=== PATIENT | male | born 1950 | race Caucasian/White ===

== ENCOUNTER 2020-04-18 15:53 | Inpatient (IN) ==
[2020-04-18 16:39] LABS: Basophils % 0.6 %; Eosinophils # 0.1 K/mcL (0.0-0.6); Eosinophils % 0.9 %; Hematocrit 41.9 % (37.5-50.1); Immature Granulocytes % 0.5 % (0-4); Lymphocytes # 1.2 K/mcL (0.6-4.6); Mean Corpuscular Hemoglobin 26.5 pg (28.0-33.3); Mean Corpuscular Volume 85.3 fL (83.0-100.0); Mean Platelet Volume 11.8 fL (9.4-12.4); Monocytes # 0.6 K/mcL (0.0-1.3); Platelet Count 198 K/mcL (140-400); Red Blood Count 4.91 M/mcL (4.19-5.50); Red Cell Distribution Width 23.3 % (11.5-14.5); White Blood Count 6.7 K/mcL (4.3-11.1)
[2020-04-18 16:40] LABS: VBG HCO3 23 mEq/L (21-27); VBG PCO2 36 mmHg (41-51); VBG PH 7.42 pH Units (7.32-7.42); VBG PO2 62 mmHg (25-50)
[2020-04-18 16:45] LABS: Neutrophils # 4.8 K/mcL (1.6-8.9)
[2020-04-18 16:50] LABS: Bacteria,Urine Few per hpf (None-Few); Bilirubin,Urine Small (Negative); Blood,Urine Negative (Negative); Clarity,Urine Clear (Clear); Color,Urine Yellow (Yellow); Glucose,Urine (UA) Normal (Normal); Hyaline Casts,Urine Moderate per lpf (None Seen); Ketones,Urine Negative (Negative); Leukocyte Esterase,Urine Small (Negative); Mucus,Urine Few per lpf (None-Few); Nitrite,Urine Negative (Negative); Protein,Urine 70 mg/dL (Neg-Trace); Specific Gravity,Urine > 1.030 (1.010-1.025); Squamous Epithelial Cell,Urine Few per hpf (None-Few); Urobilinogen,Urine >=8.0 mg/dL (Normal)
[2020-04-18 16:56] LABS: Amphetamine Screen,Urine Negative ng/mL (Cutoff=1000); Barbiturate Screen,Urine Negative ng/mL (Cutoff=200); Benzodiazepines Screen,Urine Negative ng/mL (Cutoff=200); Cannabinoid Screen,Urine Positive ng/mL (Cutoff = 50); Cocaine Screen,Urine Negative ng/mL (Cutoff= 300); Opiate Screen,Urine Negative ng/mL (Cutoff=300); Phencyclidine Screen,Urine Negative ng/mL (Cutoff=25)
[2020-04-18 16:56] LABS: Acetaminophen < 10 mcg/mL (10-20); BUN/Creatinine Ratio 20 (6-26); Blood Urea Nitrogen 27 mg/dL (8-23); Calcium 9.4 mg/dL (8.6-10.3); Carbon Dioxide 25 mEq/L (23-29); Chloride 103 mEq/L (98-107); Chol/HDL Ratio 4.8 (0-4.9); Cholesterol 101 mg/dL (< 200); Ethanol < 10 mg/dL (Less than 10); Glucose 221 mg/dL (70-105); HDL Cholesterol 21 mg/dL (40-59); LDL Cholesterol,Calculated 64 mg/dL (< 100); Osmolality,Calculated 296 (280-300); Potassium 3.8 mEq/L (3.5-5.1); Salicylate < 2.5 mg/dL (15.0-30.0); Sodium 137 mEq/L (136-145); Triglycerides 82 mg/dL (< 150); eGFR For African Americans > 60 (> 60); eGFR For Non-African Americans 54 (> 60)
[2020-04-18 17:13] LABS: Basophilic Stippling 1+ (Not Present); Macrocytosis Present (Not Present); Microcytosis Present (Not Present); Ovalocytes 1+ (Not Present); Platelet Estimate Slight Decrease (Normal); Poikilocytosis 1+ (Not Present)
[2020-04-18 17:23] LABS: Estimated Average Glucose 154 mg/dl
[2020-04-18] MEDS ORDERED: DilTIAZem 50 MG/50 ML IV.SOLN IVC SCH (17:45)
[2020-04-18] MEDS ORDERED: MOM Conc 10 ML UD.LIQ PO PRN (17:58)
[2020-04-18] MEDS ORDERED: Acetaminophen 325 MG TABLET PO PRN (17:58)
[2020-04-18] MEDS ORDERED: Mag Hydrox/Al Hydrox/Simeth 30 ML UDC PO PRN (17:58)
[2020-04-18] MEDS ORDERED: *HR* Promethazine 25 MG/ML VIAL IVP PRN (17:58)
[2020-04-18] MEDS ORDERED: Naloxone 0.4 MG/ML INJ IVP PRN (17:58)
[2020-04-18] MEDS ORDERED: Dextrose Gel 15 GM/37.5 ML TUBE PO PRN ×2 (18:00)
[2020-04-18] MEDS ORDERED: D5% in Water 1,000 ML IVC PRN (18:00)
[2020-04-18] MEDS ORDERED: *HR* Dextrose 50 % in Water (Vial) 50 ML VIAL IVP PRN (18:00)
[2020-04-18] MEDS ORDERED: Perflutren Lipid Microsphere 1.3 ML in 0.9 % Sodium Chloride 8.7 ML IVP PRN (18:22)
[2020-04-18 20:28] LABS: Adenovirus Not Detected (Not Detect); Bordetella Pertussis Not Detected (Not Detect); Chlamydophila pneumoniae Not Detected (Not Detect); Coronavirus 229E Not Detected (Not Detect); Coronavirus HKU1 Not Detected (Not Detect); Coronavirus NL63 Not Detected (Not Detect); Coronavirus OC43 Not Detected (Not Detect); Human Metapneumovirus Not Detected (Not Detect); Human Rhinovirus/Enterovirus Not Detected (Not Detect); Influenza A Subtype 2009 H1 Not Detected (Not Detect); Influenza B Not Detected (Not Detect); Mycoplasma pneumoniae Not Detected (Not Detect); Parainfluenza Virus 1 Not Detected (Not Detect); Parainfluenza Virus 2 Not Detected (Not Detect); Parainfluenza Virus 3 Not Detected (Not Detect); Parainfluenza Virus 4 Not Detected (Not Detect); Respiratory Syncytial Virus Not Detected (Not Detect); SARS-CoV-2 Not Detected (Not Detect)
[2020-04-18] MEDS: cefTRIAXone 1,000 MG in Water for inj. (sterile) 10 ML IVP SCH (22:28)
[2020-04-18] MEDS: Azithromycin 500 MG in 0.9 % Sodium Chloride 250 ML IVPB SCH (22:28)
[2020-04-18] MEDS: Furosemide 20 MG/2 ML VIAL IVP SCH (22:29)
[2020-04-18] MEDS: Insulin LISPRO 300 UNITS/3 ML VIAL SQ SCH (22:42)
[2020-04-19] MEDS ORDERED: *HR* LORazepam 0.5 MG TABLET PO ONE (00:38)
[2020-04-19 02:31] LABS: Basophils % 0.8 %; Hematocrit 44.7 % (37.5-50.1); Monocytes % 8.2 %
[2020-04-19 02:33] LABS: Basophils # 0.1 K/mcL (0.0-0.2); Eosinophils # 0.2 K/mcL (0.0-0.6); Hemoglobin 13.5 g/dL (12.9-16.9); Immature Granulocytes % 0.5 % (0-4); Immature Platelets 8.3 % (1.1-6.1); Lymphocytes # 1.2 K/mcL (0.6-4.6); Lymphocytes % 15.2 %; Mean Corpuscular HGB Conc 30.2 g/dL (31.6-35.5); Mean Corpuscular Hemoglobin 26.4 pg (28.0-33.3); Mean Corpuscular Volume 87.5 fL (83.0-100.0); Mean Platelet Volume 12.2 fL (9.4-12.4); Monocytes # 0.7 K/mcL (0.0-1.3); Neutrophils # 5.8 K/mcL (1.6-8.9); Platelet Count 178 K/mcL (140-400); Red Blood Count 5.11 M/mcL (4.19-5.50); Red Cell Distribution Width 23.4 % (11.5-14.5); Segmented Neutrophils % 73.3 %; White Blood Count 7.9 K/mcL (4.3-11.1)
[2020-04-19 02:50] LABS: Calcium 8.7 mg/dL (8.6-10.3); Magnesium 2.2 mg/dL (1.6-2.6); Phosphorous 4.1 mg/dL (2.7-4.5); Potassium 3.9 mEq/L (3.5-5.1)
[2020-04-19 03:05] LABS: Thyroid Stimulating Hormone 12.742 mcIU/mL (0.340-5.600)
[2020-04-19 03:18] LABS: Poikilocytosis 1+ (Not Present)
[2020-04-19 03:19] LABS: Anisocytosis 1+ (Not Present); Ovalocytes 1+ (Not Present)
[2020-04-19 03:20] LABS: Platelet Estimate Normal (Normal)
[2020-04-19] MEDS ORDERED: *HR* Heparin 5,000 UNIT/ML VIAL SQ SCH (06:00)
[2020-04-19] MEDS: Insulin LISPRO 300 UNITS/3 ML VIAL SQ SCH ×4 (07:21→20:45)
[2020-04-19] MEDS: Furosemide 20 MG/2 ML VIAL IVP SCH ×2 (08:11→16:49)
[2020-04-19] MEDS: Pregabalin 75 MG CAPSULE PO SCH ×2 (09:41→20:43)
[2020-04-19] MEDS ORDERED: *HR* LORazepam 1 MG TABLET PO ONE (11:14)
[2020-04-19] MEDS ORDERED: *HR* Heparin 5,000 UNIT/ML VIAL IVP ONE (11:45)
[2020-04-19] MEDS ORDERED: *HR* Heparin 5,000 UNIT/ML VIAL IVP PRN (11:45)
[2020-04-19 12:39] LABS: Hematocrit 45.3 % (37.5-50.1); Hemoglobin 13.9 g/dL (12.9-16.9); Mean Corpuscular HGB Conc 30.7 g/dL (31.6-35.5); Mean Corpuscular Hemoglobin 26.5 pg (28.0-33.3); Mean Corpuscular Volume 86.3 fL (83.0-100.0); Mean Platelet Volume 11.7 fL (9.4-12.4); Platelet Count 198 K/mcL (140-400); Red Blood Count 5.25 M/mcL (4.19-5.50); Red Cell Distribution Width 23.6 % (11.5-14.5); White Blood Count 7.6 K/mcL (4.3-11.1)
[2020-04-19 12:42] LABS: Heparin anti-factor XA UFH < 0.04 IU/mL (0.30-0.70); Prothrombin Time 23.2 Seconds (9.4-12.1)
[2020-04-19] MEDS: Heparin 25,000UNIT/250ML 1/2NS 25,000 UNIT/250 ML IV.SOLN IVC SCH (13:02)
[2020-04-19] MEDS: cefTRIAXone 1,000 MG in Water for inj. (sterile) 10 ML IVP SCH (20:41)
[2020-04-19] MEDS: diazePAM 2 MG TABLET PO SCH (20:43)
[2020-04-19] MEDS: Ondansetron 4 MG/2 ML VIAL IVP PRN (20:43)
[2020-04-19] MEDS: traZODone 50 MG TABLET PO SCH (20:43)
[2020-04-19] MEDS: Azithromycin 500 MG in 0.9 % Sodium Chloride 250 ML IVPB SCH (20:56)
[2020-04-19] MEDS ORDERED: PREGABALIN 225 MG PO SCH (21:00)
[2020-04-20 02:13] LABS: Basophils # 0.1 K/mcL (0.0-0.2); Basophils % 0.9 %; Eosinophils # 0.2 K/mcL (0.0-0.6); Eosinophils % 3.9 %; Hemoglobin 11.2 g/dL (12.9-16.9); Immature Granulocytes % 0.6 % (0-4); Lymphocytes # 1.5 K/mcL (0.6-4.6); Lymphocytes % 27.5 %; Mean Corpuscular HGB Conc 31.1 g/dL (31.6-35.5); Mean Corpuscular Hemoglobin 26.6 pg (28.0-33.3); Mean Corpuscular Volume 85.5 fL (83.0-100.0); Mean Platelet Volume 11.2 fL (9.4-12.4); Monocytes # 0.5 K/mcL (0.0-1.3); Neutrophils # 3.2 K/mcL (1.6-8.9); Platelet Count 157 K/mcL (140-400); Red Blood Count 4.21 M/mcL (4.19-5.50); Red Cell Distribution Width 22.6 % (11.5-14.5); Segmented Neutrophils % 58.1 %; White Blood Count 5.4 K/mcL (4.3-11.1)
[2020-04-20 02:34] LABS: BUN/Creatinine Ratio 27 (6-26); Blood Urea Nitrogen 35 mg/dL (8-23); Calcium 8.1 mg/dL (8.6-10.3); Carbon Dioxide 23 mEq/L (23-29); Chloride 106 mEq/L (98-107); Glucose 123 mg/dL (70-105); Osmolality,Calculated 295 (280-300); Phosphorous 4.1 mg/dL (2.7-4.5); Potassium 3.1 mEq/L (3.5-5.1); Sodium 138 mEq/L (136-145); eGFR For African Americans > 60 (> 60); eGFR For Non-African Americans 54 (> 60)
[2020-04-20] MEDS: Insulin LISPRO 300 UNITS/3 ML VIAL SQ SCH ×4 (08:36→21:14)
[2020-04-20] MEDS: Pregabalin 75 MG CAPSULE PO SCH ×2 (09:27→21:16)
[2020-04-20] MEDS: lisinopriL 10 MG TABLET PO SCH (09:27)
[2020-04-20] MEDS: diazePAM 2 MG TABLET PO SCH ×2 (09:27→21:15)
[2020-04-20] MEDS: Furosemide 20 MG/2 ML VIAL IVP SCH ×2 (09:28→16:19)
[2020-04-20] MEDS: Heparin 25,000UNIT/250ML 1/2NS 25,000 UNIT/250 ML IV.SOLN IVC SCH (09:55)
[2020-04-20 10:07] LABS: Hematocrit 42.6 % (37.5-50.1)
[2020-04-20 10:09] LABS: Hemoglobin 13.2 g/dL (12.9-16.9)
[2020-04-20 10:10] LABS: INR 1.9; Prothrombin Time 21.8 Seconds (9.4-12.1)
[2020-04-20 10:12] LABS: Activated Partial Thrombo Time 81.2 Seconds (26.0-36.0)
[2020-04-20 10:50] LABS: Folate 13.3 ng/mL (3.0-16.0)
[2020-04-20 12:46] LABS: Bilirubin,Total 1.9 mg/dL (0.3-1.0)
[2020-04-20] MEDS ORDERED: Warfarin perPT PO SCH (18:00)
[2020-04-20] MEDS ORDERED: *HR* Warfarin 1 MG TABLET PO ONE (18:00)
[2020-04-20] MEDS: Metoprolol XL (24 HR) Succ 25 MG TAB.ER.24H PO SCH (21:05)
[2020-04-20] MEDS: traZODone 50 MG TABLET PO SCH (21:16)
[2020-04-21] MEDS: Furosemide 20 MG TABLET PO SCH ×2 (06:24→17:17)
[2020-04-21] MEDS: Insulin LISPRO 300 UNITS/3 ML VIAL SQ SCH ×4 (08:28→20:59)
[2020-04-21] MEDS: diazePAM 2 MG TABLET PO SCH ×2 (08:48→21:00)
[2020-04-21] MEDS: Pregabalin 75 MG CAPSULE PO SCH ×2 (08:48→21:04)
[2020-04-21] MEDS: Metoprolol XL (24 HR) Succ 25 MG TAB.ER.24H PO SCH (08:48)
[2020-04-21] MEDS: Heparin 25,000UNIT/250ML 1/2NS 25,000 UNIT/250 ML IV.SOLN IVC SCH (08:49)
[2020-04-21] MEDS: lisinopriL 10 MG TABLET PO SCH (08:49)
[2020-04-21] MEDS: levoFLOXacin 750 MG TABLET PO SCH (08:49)
[2020-04-21 09:29] LABS: Basophils % 0.6 %; Eosinophils # 0.1 K/mcL (0.0-0.6); Eosinophils % 1.6 %; Hematocrit 41.3 % (37.5-50.1); Hemoglobin 12.4 g/dL (12.9-16.9); Heparin anti-factor XA UFH 0.52 IU/mL (0.30-0.70); INR 1.7; Immature Granulocytes % 0.8 % (0-4); Lymphocytes # 1.2 K/mcL (0.6-4.6); Mean Corpuscular Hemoglobin 26.4 pg (28.0-33.3); Mean Corpuscular Volume 88.1 fL (83.0-100.0); Monocytes # 0.5 K/mcL (0.0-1.3); Monocytes % 8.5 %; Neutrophils # 4.5 K/mcL (1.6-8.9); Platelet Count 192 K/mcL (140-400); Red Blood Count 4.69 M/mcL (4.19-5.50); Red Cell Distribution Width 22.9 % (11.5-14.5); Segmented Neutrophils % 70.5 %; White Blood Count 6.4 K/mcL (4.3-11.1)
[2020-04-21 09:37] LABS: Calcium 8.8 mg/dL (8.6-10.3); Magnesium 1.8 mg/dL (1.6-2.6); Phosphorous 3.1 mg/dL (2.7-4.5); Potassium 3.5 mEq/L (3.5-5.1)
[2020-04-21] MEDS: Warfarin perPT PO SCH (15:20)
[2020-04-21] MEDS ORDERED: *HR* Warfarin 2 MG TABLET PO ONE (18:00)
[2020-04-21] MEDS: traZODone 50 MG TABLET PO SCH (21:04)
[2020-04-22 05:25] LABS: Basophils % 0.6 %; Eosinophils # 0.1 K/mcL (0.0-0.6); Eosinophils % 2.1 %; Hematocrit 39.7 % (37.5-50.1); Hemoglobin 12.3 g/dL (12.9-16.9); INR 1.7; Immature Granulocytes % 0.6 % (0-4); Lymphocytes # 1.3 K/mcL (0.6-4.6); Mean Corpuscular Hemoglobin 27.2 pg (28.0-33.3); Mean Corpuscular Volume 87.6 fL (83.0-100.0); Mean Platelet Volume 11.9 fL (9.4-12.4); Monocytes # 0.6 K/mcL (0.0-1.3); Monocytes % 10.8 %; Neutrophils # 3.2 K/mcL (1.6-8.9); Platelet Count 161 K/mcL (140-400); Prothrombin Time 19.6 Seconds (9.4-12.1); Red Blood Count 4.53 M/mcL (4.19-5.50); Red Cell Distribution Width 22.6 % (11.5-14.5); Segmented Neutrophils % 60.9 %; White Blood Count 5.3 K/mcL (4.3-11.1)
[2020-04-22 05:27] LABS: Activated Partial Thrombo Time 62.6 Seconds (26.0-36.0)
[2020-04-22] MEDS: Furosemide 20 MG TABLET PO SCH ×2 (05:44→16:58)
[2020-04-22 05:51] LABS: BUN/Creatinine Ratio 29 (6-26); Blood Urea Nitrogen 37 mg/dL (8-23); Calcium 8.5 mg/dL (8.6-10.3); Carbon Dioxide 25 mEq/L (23-29); Chloride 101 mEq/L (98-107); Glucose 125 mg/dL (70-105); Magnesium 1.8 mg/dL (1.6-2.6); Osmolality,Calculated 288 (280-300); Phosphorous 3.2 mg/dL (2.7-4.5); Potassium 3.9 mEq/L (3.5-5.1); Sodium 134 mEq/L (136-145); eGFR For African Americans > 60 (> 60); eGFR For Non-African Americans 55 (> 60)
[2020-04-22] MEDS: Insulin LISPRO 300 UNITS/3 ML VIAL SQ SCH ×4 (08:12→20:01)
[2020-04-22] MEDS: levoFLOXacin 750 MG TABLET PO SCH (08:13)
[2020-04-22] MEDS: Pregabalin 75 MG CAPSULE PO SCH ×2 (08:13→20:00)
[2020-04-22] MEDS: Metoprolol XL (24 HR) Succ 25 MG TAB.ER.24H PO SCH (08:13)
[2020-04-22] MEDS: lisinopriL 10 MG TABLET PO SCH (08:14)
[2020-04-22] MEDS: diazePAM 2 MG TABLET PO SCH (08:14)
[2020-04-22] MEDS: Heparin 25,000UNIT/250ML 1/2NS 25,000 UNIT/250 ML IV.SOLN IVC SCH (08:16)
[2020-04-22 14:56] LABS: Mycoplasma pneumoniae IgG 0.55 U/L (<=0.09)
[2020-04-22] MEDS: Warfarin perPT PO SCH (16:59)
[2020-04-22] MEDS ORDERED: *HR* Warfarin 2 MG TABLET PO ONE (18:00)
[2020-04-22] MEDS: traZODone 50 MG TABLET PO SCH (20:00)
[2020-04-23 04:29] LABS: Hematocrit 38.7 % (37.5-50.1); Mean Corpuscular Hemoglobin 26.7 pg (28.0-33.3); Mean Corpuscular Volume 86.2 fL (83.0-100.0); Mean Platelet Volume 11.4 fL (9.4-12.4); Platelet Count 153 K/mcL (140-400); Red Blood Count 4.49 M/mcL (4.19-5.50); Red Cell Distribution Width 22.5 % (11.5-14.5); White Blood Count 5.2 K/mcL (4.3-11.1)
[2020-04-23 04:41] LABS: INR 1.7
[2020-04-23 04:43] LABS: Activated Partial Thrombo Time 66.7 Seconds (26.0-36.0)
[2020-04-23 04:49] LABS: BUN/Creatinine Ratio 26 (6-26); Blood Urea Nitrogen 30 mg/dL (8-23); Calcium 8.6 mg/dL (8.6-10.3); Carbon Dioxide 27 mEq/L (23-29); Chloride 103 mEq/L (98-107); Glucose 147 mg/dL (70-105); Magnesium 1.7 mg/dL (1.6-2.6); Osmolality,Calculated 289 (280-300); Potassium 4.2 mEq/L (3.5-5.1); Sodium 135 mEq/L (136-145); eGFR For African Americans > 60 (> 60); eGFR For Non-African Americans > 60 (> 60)
[2020-04-23] MEDS: Furosemide 20 MG TABLET PO SCH ×2 (05:27→16:21)
[2020-04-23] MEDS: Ondansetron 4 MG/2 ML VIAL IVP PRN (05:29)
[2020-04-23] MEDS: Metoprolol XL (24 HR) Succ 25 MG TAB.ER.24H PO SCH (07:54)
[2020-04-23] MEDS: levoFLOXacin 750 MG TABLET PO SCH (07:54)
[2020-04-23] MEDS: Insulin LISPRO 300 UNITS/3 ML VIAL SQ SCH ×4 (07:54→21:52)
[2020-04-23] MEDS: lisinopriL 10 MG TABLET PO SCH (07:54)
[2020-04-23] MEDS: Pregabalin 75 MG CAPSULE PO SCH ×2 (07:54→22:01)
[2020-04-23] MEDS: Heparin 25,000UNIT/250ML 1/2NS 25,000 UNIT/250 ML IV.SOLN IVC SCH ×3 (07:55→16:23)
[2020-04-23] MEDS: Warfarin perPT PO SCH (16:11)
[2020-04-23] MEDS ORDERED: *HR* Warfarin 4 MG TABLET PO ONE (18:00)
[2020-04-23] MEDS: traZODone 50 MG TABLET PO SCH (22:01)
[2020-04-24] MEDS: Furosemide 20 MG TABLET PO SCH (05:21)
[2020-04-24] MEDS: Heparin 25,000UNIT/250ML 1/2NS 25,000 UNIT/250 ML IV.SOLN IVC SCH (05:44)
[2020-04-24 06:24] LABS: Hemoglobin 11.9 g/dL (12.9-16.9); INR 1.8; Prothrombin Time 20.1 Seconds (9.4-12.1); Red Cell Distribution Width 22.5 % (11.5-14.5)
[2020-04-24 06:26] LABS: Basophils # 0.1 K/mcL (0.0-0.2); Eosinophils # 0.1 K/mcL (0.0-0.6); Eosinophils % 1.8 %; Hematocrit 39.2 % (37.5-50.1); Immature Granulocytes % 0.6 % (0-4); Immature Platelets 9.1 % (1.1-6.1); Lymphocytes % 30.9 %; Mean Corpuscular HGB Conc 30.4 g/dL (31.6-35.5); Mean Corpuscular Hemoglobin 26.3 pg (28.0-33.3); Mean Corpuscular Volume 86.5 fL (83.0-100.0); Mean Platelet Volume 11.5 fL (9.4-12.4); Monocytes # 0.5 K/mcL (0.0-1.3); Monocytes % 10.2 %; Neutrophils # 2.8 K/mcL (1.6-8.9); Platelet Count 140 K/mcL (140-400); Red Blood Count 4.53 M/mcL (4.19-5.50); Segmented Neutrophils % 55.5 %
[2020-04-24 06:40] LABS: Lymphocytes # 1.6 K/mcL (0.6-4.6)
[2020-04-24 06:41] LABS: BUN/Creatinine Ratio 24 (6-26); Blood Urea Nitrogen 27 mg/dL (8-23); Calcium 8.8 mg/dL (8.6-10.3); Carbon Dioxide 27 mEq/L (23-29); Chloride 104 mEq/L (98-107); Glucose 123 mg/dL (70-105); Magnesium 1.7 mg/dL (1.6-2.6); Osmolality,Calculated 288 (280-300); Potassium 4.1 mEq/L (3.5-5.1); Sodium 136 mEq/L (136-145); eGFR For African Americans > 60 (> 60); eGFR For Non-African Americans > 60 (> 60)
[2020-04-24] MEDS: Insulin LISPRO 300 UNITS/3 ML VIAL SQ SCH ×4 (08:13→20:21)
[2020-04-24] MEDS: lisinopriL 10 MG TABLET PO SCH (08:18)
[2020-04-24] MEDS: Metoprolol XL (24 HR) Succ 25 MG TAB.ER.24H PO SCH (08:18)
[2020-04-24] MEDS: levoFLOXacin 750 MG TABLET PO SCH (08:18)
[2020-04-24] MEDS: Pregabalin 75 MG CAPSULE PO SCH ×2 (08:19→20:22)
[2020-04-24 10:29] LABS: Hepatitis B Surface Antigen Nonreactive (Nonreactive)
[2020-04-24 10:57] LABS: Hepatitis C Virus Antibody Nonreactive (Nonreactive)
[2020-04-24] MEDS: diazePAM 2 MG TABLET PO PRN (15:42)
[2020-04-24] MEDS: Warfarin perPT PO SCH (17:37)
[2020-04-24] MEDS ORDERED: *HR* Warfarin 2 MG TABLET PO ONE (18:00)
[2020-04-24] MEDS: traZODone 50 MG TABLET PO SCH (20:22)
[2020-04-25] MEDS: *HR* HYDROcodone/Acet 5/325 mg TABLET PO PRN (03:29)
[2020-04-25 04:24] LABS: Basophils # 0.1 K/mcL (0.0-0.2); Eosinophils # 0.1 K/mcL (0.0-0.6); Eosinophils % 2.5 %; Hematocrit 40.3 % (37.5-50.1); Immature Granulocytes % 0.6 % (0-4); Lymphocytes # 1.6 K/mcL (0.6-4.6); Lymphocytes % 30.3 %; Mean Corpuscular HGB Conc 29.8 g/dL (31.6-35.5); Mean Corpuscular Volume 87.4 fL (83.0-100.0); Mean Platelet Volume 12.1 fL (9.4-12.4); Monocytes # 0.5 K/mcL (0.0-1.3); Monocytes % 10.2 %; Neutrophils # 2.8 K/mcL (1.6-8.9); Platelet Count 122 K/mcL (140-400); Red Blood Count 4.61 M/mcL (4.19-5.50); Red Cell Distribution Width 22.5 % (11.5-14.5); Segmented Neutrophils % 55.4 %; White Blood Count 5.1 K/mcL (4.3-11.1)
[2020-04-25 04:37] LABS: INR 1.8; Prothrombin Time 20.2 Seconds (9.4-12.1)
[2020-04-25 04:38] LABS: BUN/Creatinine Ratio 22 (6-26); Blood Urea Nitrogen 28 mg/dL (8-23); Carbon Dioxide 25 mEq/L (23-29); Chloride 104 mEq/L (98-107); Glucose 164 mg/dL (70-105); Magnesium 1.7 mg/dL (1.6-2.6); Osmolality,Calculated 291 (280-300); Potassium 4.3 mEq/L (3.5-5.1); Sodium 136 mEq/L (136-145); eGFR For African Americans > 60 (> 60); eGFR For Non-African Americans 55 (> 60)
[2020-04-25] MEDS: Heparin 25,000UNIT/250ML 1/2NS 25,000 UNIT/250 ML IV.SOLN IVC SCH ×2 (07:09→16:43)
[2020-04-25] MEDS: Pregabalin 75 MG CAPSULE PO SCH ×2 (08:23→20:42)
[2020-04-25] MEDS: Spironolactone 25 MG TABLET PO SCH (08:23)
[2020-04-25] MEDS: Furosemide 40 MG TABLET PO SCH (08:23)
[2020-04-25] MEDS: Insulin LISPRO 300 UNITS/3 ML VIAL SQ SCH ×4 (08:23→20:38)
[2020-04-25] MEDS: Metoprolol XL (24 HR) Succ 25 MG TAB.ER.24H PO SCH (08:23)
[2020-04-25] MEDS: lisinopriL 10 MG TABLET PO SCH (08:23)
[2020-04-25] MEDS: levoFLOXacin 750 MG TABLET PO SCH (08:23)
[2020-04-25] MEDS: Warfarin perPT PO SCH (17:50)
[2020-04-25] MEDS ORDERED: *HR* Warfarin 5 MG TABLET PO ONE (18:00)
[2020-04-25] MEDS: traZODone 50 MG TABLET PO SCH (20:42)
[2020-04-26 01:36] LABS: Hemoglobin 10.6 g/dL (12.9-16.9)
[2020-04-26 01:38] LABS: Basophils % 0.6 %; Eosinophils # 0.1 K/mcL (0.0-0.6); Eosinophils % 2.4 %; Hematocrit 35.1 % (37.5-50.1); Immature Granulocytes % 0.7 % (0-4); Immature Platelets 9.2 % (1.1-6.1); Lymphocytes # 1.2 K/mcL (0.6-4.6); Lymphocytes % 21.8 %; Mean Corpuscular HGB Conc 30.2 g/dL (31.6-35.5); Mean Corpuscular Hemoglobin 26.6 pg (28.0-33.3); Mean Platelet Volume 11.9 fL (9.4-12.4); Monocytes # 0.5 K/mcL (0.0-1.3); Monocytes % 8.6 %; Platelet Count 115 K/mcL (140-400); Red Blood Count 3.99 M/mcL (4.19-5.50); Red Cell Distribution Width 22.2 % (11.5-14.5); Segmented Neutrophils % 65.9 %; White Blood Count 5.4 K/mcL (4.3-11.1)
[2020-04-26 01:39] LABS: INR 1.9; Prothrombin Time 21.7 Seconds (9.4-12.1)
[2020-04-26 01:41] LABS: Neutrophils # 3.6 K/mcL (1.6-8.9)
[2020-04-26 01:54] LABS: BUN/Creatinine Ratio 25 (6-26); Blood Urea Nitrogen 29 mg/dL (8-23); Calcium 8.8 mg/dL (8.6-10.3); Carbon Dioxide 26 mEq/L (23-29); Chloride 103 mEq/L (98-107); Glucose 129 mg/dL (70-105); Magnesium 1.6 mg/dL (1.6-2.6); Osmolality,Calculated 292 (280-300); Sodium 137 mEq/L (136-145); eGFR For African Americans > 60 (> 60); eGFR For Non-African Americans > 60 (> 60)
[2020-04-26] MEDS: *HR* HYDROcodone/Acet 5/325 mg TABLET PO PRN (02:03)
[2020-04-26] MEDS: Insulin LISPRO 300 UNITS/3 ML VIAL SQ SCH ×4 (08:54→22:24)
[2020-04-26] MEDS: Pregabalin 75 MG CAPSULE PO SCH ×2 (08:59→22:23)
[2020-04-26] MEDS: Furosemide 40 MG TABLET PO SCH (08:59)
[2020-04-26] MEDS: lisinopriL 10 MG TABLET PO SCH (08:59)
[2020-04-26] MEDS: Spironolactone 25 MG TABLET PO SCH (08:59)
[2020-04-26] MEDS: levoFLOXacin 750 MG TABLET PO SCH (08:59)
[2020-04-26] MEDS: Metoprolol XL (24 HR) Succ 25 MG TAB.ER.24H PO SCH (08:59)
[2020-04-26] MEDS: Heparin 25,000UNIT/250ML 1/2NS 25,000 UNIT/250 ML IV.SOLN IVC SCH (09:02)
[2020-04-26] MEDS: *HR* Heparin 5,000 UNIT/ML VIAL IVP PRN (11:10)
[2020-04-26] MEDS ORDERED: Iron Sucrose Complex 200 MG in 0.9 % Sodium Chloride 100 ML IVPB ONE (11:38)
[2020-04-26] MEDS: Warfarin perPT PO SCH (17:14)
[2020-04-26 17:27] LABS: Hemoglobin 11.3 g/dL (12.9-16.9)
[2020-04-26 17:29] LABS: Hematocrit 36.1 % (37.5-50.1)
[2020-04-26] MEDS ORDERED: Ringers Solution, Lactated 1,000 ML IVC ONE (17:51)
[2020-04-26] MEDS ORDERED: *HR* Warfarin 5 MG TABLET PO ONE (18:00)
[2020-04-26] MEDS: traZODone 50 MG TABLET PO SCH (21:49)
[2020-04-26] MEDS ORDERED: Acetaminophen IV 1,000 MG/100 ML INFUS..BTL IVPB ONE (22:22)
[2020-04-27 01:52] LABS: Basophils % 0.6 %; Hemoglobin 10.6 g/dL (12.9-16.9)
[2020-04-27 01:53] LABS: INR 1.9
[2020-04-27 01:54] LABS: Eosinophils # 0.1 K/mcL (0.0-0.6); Eosinophils % 2.4 %; Hematocrit 34.5 % (37.5-50.1); Immature Granulocytes % 0.6 % (0-4); Immature Platelets 9.6 % (1.1-6.1); Lymphocytes # 1.4 K/mcL (0.6-4.6); Lymphocytes % 28.1 %; Mean Corpuscular HGB Conc 30.7 g/dL (31.6-35.5); Mean Corpuscular Hemoglobin 26.6 pg (28.0-33.3); Mean Corpuscular Volume 86.5 fL (83.0-100.0); Mean Platelet Volume 11.9 fL (9.4-12.4); Monocytes # 0.5 K/mcL (0.0-1.3); Monocytes % 10.6 %; Neutrophils # 2.8 K/mcL (1.6-8.9); Platelet Count 101 K/mcL (140-400); Red Blood Count 3.99 M/mcL (4.19-5.50); Red Cell Distribution Width 21.8 % (11.5-14.5); Segmented Neutrophils % 57.7 %; White Blood Count 4.9 K/mcL (4.3-11.1)
[2020-04-27 02:00] LABS: BUN/Creatinine Ratio 28 (6-26); Blood Urea Nitrogen 28 mg/dL (8-23); Calcium 8.8 mg/dL (8.6-10.3); Carbon Dioxide 28 mEq/L (23-29); Chloride 103 mEq/L (98-107); Glucose 130 mg/dL (70-105); Magnesium 1.6 mg/dL (1.6-2.6); Osmolality,Calculated 289 (280-300); Sodium 136 mEq/L (136-145); eGFR For African Americans > 60 (> 60); eGFR For Non-African Americans > 60 (> 60)
[2020-04-27] MEDS: Heparin 25,000UNIT/250ML 1/2NS 25,000 UNIT/250 ML IV.SOLN IVC SCH ×2 (06:17→22:08)
[2020-04-27] MEDS: lisinopriL 5 MG TABLET PO SCH (08:23)
[2020-04-27] MEDS: Insulin LISPRO 300 UNITS/3 ML VIAL SQ SCH ×4 (09:29→22:05)
[2020-04-27] MEDS: Spironolactone 25 MG TABLET PO SCH (09:41)
[2020-04-27] MEDS: levoFLOXacin 750 MG TABLET PO SCH (09:41)
[2020-04-27] MEDS: Furosemide 40 MG TABLET PO SCH (09:41)
[2020-04-27] MEDS: Pregabalin 75 MG CAPSULE PO SCH ×2 (09:41→22:08)
[2020-04-27] MEDS: Metoprolol XL (24 HR) Succ 25 MG TAB.ER.24H PO SCH (11:56)
[2020-04-27] MEDS: Warfarin perPT PO SCH (17:20)
[2020-04-27] MEDS ORDERED: *HR* Warfarin 5 MG TABLET PO ONE (18:00)
[2020-04-27] MEDS: *HR* HYDROcodone/Acet 5/325 mg TABLET PO PRN (19:18)
[2020-04-27] MEDS: *HR* Heparin 5,000 UNIT/ML VIAL IVP PRN (19:19)
[2020-04-27] MEDS: traZODone 50 MG TABLET PO SCH (22:08)
[2020-04-28 01:59] LABS: Eosinophils % 2.3 %
[2020-04-28 02:00] LABS: Immature Platelets 10.1 % (1.1-6.1)
[2020-04-28 02:02] LABS: Basophils % 0.6 %; Eosinophils # 0.1 K/mcL (0.0-0.6); Hematocrit 34.6 % (37.5-50.1); Hemoglobin 10.6 g/dL (12.9-16.9); Immature Granulocytes % 0.4 % (0-4); Lymphocytes # 1.3 K/mcL (0.6-4.6); Lymphocytes % 27.3 %; Mean Corpuscular HGB Conc 30.6 g/dL (31.6-35.5); Mean Corpuscular Hemoglobin 26.4 pg (28.0-33.3); Mean Corpuscular Volume 86.3 fL (83.0-100.0); Mean Platelet Volume 12.3 fL (9.4-12.4); Monocytes # 0.5 K/mcL (0.0-1.3); Neutrophils # 2.9 K/mcL (1.6-8.9); Platelet Count 101 K/mcL (140-400); Red Blood Count 4.01 M/mcL (4.19-5.50); Red Cell Distribution Width 21.9 % (11.5-14.5); Segmented Neutrophils % 59.4 %; White Blood Count 4.8 K/mcL (4.3-11.1)
[2020-04-28 02:08] LABS: INR 2.5
[2020-04-28 02:17] LABS: BUN/Creatinine Ratio 22 (6-26); Blood Urea Nitrogen 23 mg/dL (8-23); Calcium 8.8 mg/dL (8.6-10.3); Carbon Dioxide 27 mEq/L (23-29); Chloride 104 mEq/L (98-107); Glucose 151 mg/dL (70-105); Magnesium 1.7 mg/dL (1.6-2.6); Osmolality,Calculated 291 (280-300); Potassium 3.8 mEq/L (3.5-5.1); Sodium 137 mEq/L (136-145); eGFR For African Americans > 60 (> 60); eGFR For Non-African Americans > 60 (> 60)
[2020-04-28] MEDS: Pregabalin 75 MG CAPSULE PO SCH (07:46)
[2020-04-28] MEDS: Insulin LISPRO 300 UNITS/3 ML VIAL SQ SCH ×3 (07:46→16:01)
[2020-04-28] MEDS: Furosemide 40 MG TABLET PO SCH (07:47)
[2020-04-28] MEDS: Spironolactone 25 MG TABLET PO SCH (07:47)
[2020-04-28] MEDS: lisinopriL 5 MG TABLET PO SCH (09:15)
[2020-04-28] MEDS: diazePAM 2 MG TABLET PO PRN (09:18)
[2020-04-28] MEDS: Metoprolol XL (24 HR) Succ 25 MG TAB.ER.24H PO SCH (12:14)
[2020-04-28 15:28] VITALS: BP 99/65
[2020-04-28] MEDS: Warfarin perPT PO SCH (17:12)
[2020-04-28] MEDS ORDERED: *HR* Warfarin 2.5 MG TABLET PO ONE (18:00)
== END 2020-04-28 17:29 | disposition home or self-care (01) | DRG 291 ==
LOC: 2ANU 15:53 → EMEROOARM 15:53 → SUATTDRO 20:32 → 2ANU 21:17 → SUATTDRO 04-19 19:38
PROVIDERS: ADMIT Family Medicine; ATTEND Pharmacist